=== PATIENT | male | born 1940 | race Caucasian/White ===

== ENCOUNTER 2023-05-31 12:10 | Inpatient (IN) | payer OTHER ==
[~2023-05-31] VITALS: Ht 170.2 cm; Wt 90.7 kg
[~2023-05-31 12:10] MED LIST: ASPI81CT95 PO; ATOR20TA40 PO; CLOP-68 PO
[2023-05-31 12:12] VITALS: BP_SYST 138; BP_SYST 140; BP_DIAS 71; BP_DIAS 90; PULSE 72; PULSE 77; RESP 16; TEMP 98.5; O2SAT 98
[2023-05-31 12:27] LABS: BASOPHILS # (AUTO) 0.1 K/uL (0.00-0.22); BASOPHILS % (AUTO) 0.8 % (0.0-2.0); EOSINOPHILS # (AUTO) 0.1 K/uL (0-0.4); EOSINOPHILS % (AUTO) 2.2 % (0.0-4.0); HEMATOCRIT 39.3 % (36-52); HEMOGLOBIN 13.7 g/dL (12.0-18.0); LYMPHOCYTES # (AUTO) 1.5 K/uL (2.0-11.5); LYMPHOCYTES % (AUTO) 22.2 % (20.5-51.1); MEAN CORPUSCULAR HEMOGLOBIN 33 pg (27-31); MEAN CORPUSCULAR HGB CONC 35 g/dL (33-37); MEAN CORPUSCULAR VOLUME 95.8 fL (80-94); MONOCYTES # (AUTO) 0.5 K/uL (0.8-1.0); MONOCYTES % (AUTO) 8.2 % (1.7-9.3); NEUTROPHILS # (AUTO) 4.4 K/uL (1.8-7.7); NEUTROPHILS % (AUTO) 66.6 % (42.2-75.2); PLATELET COUNT (AUTO) 260 K/uL (140-450); RED BLOOD CELL COUNT(AUTO) 4.11 MIL/uL (4.20-6.10); RED CELL DISTRIBUTION WIDTH 13.6 % (11.6-13.7); WHITE BLOOD COUNT (AUTO) 6.6 K/uL (4.8-10.8)
[2023-05-31] MEDS ORDERED: METO100T14 PO (12:35)
[2023-05-31] MEDS ORDERED: SIMV-373 PO (12:35)
[2023-05-31] MEDS ORDERED: CITA10TA11 PO (12:35)
[2023-05-31] MEDS ORDERED: TAMS0.4C96 PO (12:35)
[2023-05-31] MEDS ORDERED: QUET300T1 PO (12:39)
[2023-05-31] MEDS ORDERED: GABA100C PO (12:39)
[2023-05-31] MEDS ORDERED: AMAN-72 PO (12:39)
[2023-05-31 12:41] LABS: ANION GAP 7.1 (8-16); CALCIUM 8.5 mg/dL (8.5-10.1); CARBON DIOXIDE 28.9 mmol/L (21-32); CHLORIDE 107 mmol/L (98-107); CREATININE 0.9 mg/dL (0.6-1.3); GLUCOSE 124 mg/dL (74-106); SODIUM SERUM 139 mmol/L (136-145); UREA NITROGEN, BLOOD 17 mg/dL (7-18)
[2023-05-31 12:51] LABS: INR 0.96 (0.8-1.2); PARTIAL THROMBOPLASTIN TIME 24.5 secs (22-35.6); PROTHROMBIN TIME 10.1 secs (10.8-13.4)
[2023-05-31] MEDS: ASPIRIN 81 MG TAB.CHEW PO ONE (14:56)
[2023-05-31] MEDS ORDERED: HYDROcodone/APAP 5/325 MG 1 TAB TAB PO PRN (16:30)
[2023-05-31] MEDS ORDERED: ALBUTEROL 0.083% 2.5 MG/3 ML NEBU INH PRN (16:30)
[2023-05-31] MEDS ORDERED: ACETAMINOPHEN 325 MG TAB PO PRN (16:30)
[2023-05-31] MEDS: NACL 0.9% 1,000 ML IV SCH (17:53)
[2023-05-31 19:54] LABS: APPEARANCE,URINE CLEAR (CLEAR); BILIRUBIN,URINE NEGATIVE (NEGATIVE); BLOOD, URINE NEGATIVE (NEGATIVE); COLOR,URINE YELLOW (YELLOW); LEUKOCYTE ESTERASE ,URINE NEGATIVE (NEGATIVE); NITRITE, URINE NEGATIVE (NEGATIVE); PH,URINE 6.5 (5.0-9.0); PROTEIN,URINE NEGATIVE (NEGATIVE); UGLUCOSE NEGATIVE (NEGATIVE); UROBILINOGEN,URINE 0.2 EU/dL (0.2 - 1)
[2023-05-31] MEDS: CITALOPRAM 20 MG TAB PO SCH (21:10)
[2023-05-31] MEDS: QUEtiapine FUMARATE 100 MG TAB PO SCH (21:10)
[2023-05-31] MEDS: TAMSULOSIN 0.4 MG CAP PO SCH (21:10)
[2023-05-31] MEDS: GABAPENTIN 100 MG CAP PO SCH (21:10)
[2023-05-31 22:00] VITALS: BP 141/83; PULSE 60; PULSE 61; RESP 18; TEMP 96.4; O2SAT 95
[2023-06-01] VITALS (8 sets, daily range): BP systolic 129–189; BP diastolic 61–112; PULSE 59–103; RESP 16–22; TEMP 96.4–98.5; O2SAT 93–95
[2023-06-01 05:10] LABS: BASOPHILS % (AUTO) 0.6 % (0.0-2.0); EOSINOPHILS # (AUTO) 0.2 K/uL (0-0.4); EOSINOPHILS % (AUTO) 2.9 % (0.0-4.0); HEMATOCRIT 38.5 % (36-52); HEMOGLOBIN 13.3 g/dL (12.0-18.0); LYMPHOCYTES # (AUTO) 1.3 K/uL (2.0-11.5); LYMPHOCYTES % (AUTO) 21.4 % (20.5-51.1); MEAN CORPUSCULAR HEMOGLOBIN 33 pg (27-31); MEAN CORPUSCULAR HGB CONC 35 g/dL (33-37); MONOCYTES # (AUTO) 0.7 K/uL (0.8-1.0); MONOCYTES % (AUTO) 11.5 % (1.7-9.3); NEUTROPHILS % (AUTO) 63.6 % (42.2-75.2); PLATELET COUNT (AUTO) 251 K/uL (140-450); RED BLOOD CELL COUNT(AUTO) 4.01 MIL/uL (4.20-6.10); RED CELL DISTRIBUTION WIDTH 13.9 % (11.6-13.7); WHITE BLOOD COUNT (AUTO) 6.3 K/uL (4.8-10.8)
[2023-06-01 05:18] LABS: ANION GAP 7.9 (8-16); CALCIUM 8.4 mg/dL (8.5-10.1); CARBON DIOXIDE 29.7 mmol/L (21-32); CHLORIDE 109 mmol/L (98-107); CREATININE 0.9 mg/dL (0.6-1.3); GLUCOSE 91 mg/dL (74-106); POTASSIUM 3.6 mmol/L (3.5-5.1); SODIUM SERUM 143 mmol/L (136-145); UREA NITROGEN, BLOOD 14 mg/dL (7-18)
[2023-06-01] MEDS: ASPIRIN 81 MG TAB.CHEW PO SCH (09:07)
[2023-06-01] MEDS: ATORVASTATIN 20 MG TAB PO SCH (09:08)
[2023-06-01] MEDS: CLOPIDOGREL 75 MG TAB PO SCH (09:09)
[2023-06-01] MEDS: ONDANSETRON 4 MG/2 ML VIAL IVP PRN (13:25)
[2023-06-01] MEDS: hydrALAZINE 20 MG/ML VIAL IVP PRN (21:00)
[2023-06-01] MEDS: PANTOPRAZOLE 40 MG INJ VIAL IVP ONE (21:00)
[2023-06-02 04:00] VITALS: BP 134/78; PULSE 87; RESP 20; O2SAT 95
[2023-06-02 08:33] VITALS: BP 147/78; PULSE 85; RESP 17; TEMP 97.2; O2SAT 96
[2023-06-02] MEDS: PANTOPRAZOLE 40 MG INJ VIAL IVP SCH (09:02)
[2023-06-02] MEDS: METOPROLOL SUCCINATE 50 MG TABER PO SCH (09:03)
[2023-06-02 09:31] LABS: BASOPHILS % (AUTO) 0.2 % (0.0-2.0); EOSINOPHILS # (AUTO) 0.1 K/uL (0-0.4); EOSINOPHILS % (AUTO) 0.8 % (0.0-4.0); HEMATOCRIT 38.9 % (36-52); HEMOGLOBIN 13.4 g/dL (12.0-18.0); LYMPHOCYTES % (AUTO) 8.8 % (20.5-51.1); MEAN CORPUSCULAR HEMOGLOBIN 33 pg (27-31); MEAN CORPUSCULAR HGB CONC 35 g/dL (33-37); MEAN CORPUSCULAR VOLUME 95.1 fL (80-94); MONOCYTES # (AUTO) 0.8 K/uL (0.8-1.0); MONOCYTES % (AUTO) 7.7 % (1.7-9.3); NEUTROPHILS # (AUTO) 9.1 K/uL (1.8-7.7); NEUTROPHILS % (AUTO) 82.5 % (42.2-75.2); PLATELET COUNT (AUTO) 266 K/uL (140-450); RED BLOOD CELL COUNT(AUTO) 4.09 MIL/uL (4.20-6.10); RED CELL DISTRIBUTION WIDTH 13.5 % (11.6-13.7)
[2023-06-02 09:42] LABS: ANION GAP 10.4 (8-16); CALCIUM 8.5 mg/dL (8.5-10.1); CARBON DIOXIDE 28.1 mmol/L (21-32); CHLORIDE 107 mmol/L (98-107); CREATININE 0.9 mg/dL (0.6-1.3); GLUCOSE 137 mg/dL (74-106); POTASSIUM 3.5 mmol/L (3.5-5.1); SODIUM SERUM 142 mmol/L (136-145); UREA NITROGEN, BLOOD 15 mg/dL (7-18)
[2023-06-02 09:50] VITALS: PULSE 85; RESP 17; O2SAT 96
[2023-06-02 10:55] VITALS: BP 147/78; PULSE 85; RESP 17; TEMP 97.2
== END 2023-06-02 12:30 | DRG 66 ==
LOC: MED 12:10 → MTU 16:33
PROVIDERS: ADMIT Family Medicine; ATTEND Family Medicine
DX: I63.9 Cerebral infarction, unspecified (principal); R47.81 Slurred speech; E78.5 Hyperlipidemia, unspecified; R29.703 NIHSS score 3; I11.0 Hypertensive heart disease with heart failure; I50.9 Heart failure, unspecified; I25.10 Atherosclerotic heart disease of native coronary artery without angina pectoris
CPT/HCPCS: 36415; 70450; 71045; 80048; 81003; 82948; 84484; 85025; 85610; 85730; 86886; 86900; 86901; 87081; 93005; 96374; 96375; 97116; 97163-GP; 99291; C9113; J0360; J2405; Q9967

== ENCOUNTER 2023-09-14 15:40 | Emergency (ER) | payer OTHER ==
[~2023-09-14] VITALS: Ht 167.6 cm; Wt 83.9 kg
[~2023-09-14 15:40] MED LIST changes: +AMAN-72 PO; +CITA10TA11 PO; +GABA100C PO; +METO100T14 PO; +QUET300T1 PO; +SIMV-373 PO; +TAMS0.4C96 PO
[2023-09-14 15:48] VITALS: BP 165/85; PULSE 97; RESP 20; TEMP 97.3; O2SAT 97
[2023-09-14 18:40] VITALS: BP 151/82; PULSE 89; RESP 18; TEMP 97.5; O2SAT 97
== END 2023-09-14 19:25 ==
LOC: MED 15:40
DX: S00.81XA Abrasion of other part of head, initial encounter (principal); S50.312A Abrasion of left elbow, initial encounter; F20.9 Schizophrenia, unspecified; Z85.89 Personal history of malignant neoplasm of other organs and systems; Z86.79 Personal history of other diseases of the circulatory system; Z79.899 Other long term (current) drug therapy; Z79.82 Long term (current) use of aspirin; W01.0XXA Fall on same level from slipping, tripping and stumbling without subsequent striking against object, initial encounter; Y93.89 Activity, other specified; Y92.89 Other specified places as the place of occurrence of the external cause; Y99.8 Other external cause status
CPT/HCPCS: 70450; 72125; 90471; 90715; 99285